=== PATIENT | female | born 1990 | race Hispanic/Latino ===

== ENCOUNTER 2021-04-27 07:07 | Emergency (ER) | payer OTHER ==
--- NOTE | 2021-04-27 08:33 | XRay Report ---
CHEST 2 VIEWS INDICATION / CLINICAL INFORMATION: Difficulty breathing, fever, sore throat, cough x5 days. COMPARISON: None available. FINDINGS: SUPPORT DEVICES: None. HEART / MEDIASTINUM: No significant abnormality. LUNGS / PLEURA: No significant pulmonary abnormality. No significant pleural effusion. No pneumothora x. ADDITIONAL FINDINGS: No significant additional findings. IMPRESSION: 1. No acute abnormality of the chest. Signer Name: Reese العلي MD Signed: 04/27/2021 8:29 AM Workstation Name: [email or web address]
--- NOTE | 2021-04-27 09:47 | Emergency Department Report ---
Blank Doc - Documentation Documentation: I did not participate in the care of this patient.
[2021-04-27] MEDS ORDERED: ALBUTEROL 2.5 MG/3 ML NEBU IH ONE (10:27)
[2021-04-27] MEDS ORDERED: predniSONE 20 MG TAB PO ONE (10:27)
[2021-04-27] MEDS ORDERED: IBUPROFEN 800 MG TAB PO ONE (10:27)
--- NOTE | 2021-04-27 10:27 | Emergency Department Report ---
Minor Respiratory - HPI Chief Complaint: Dyspnea/Respdistress Stated Complaint: congestion, runny nose, fever Time Seen by Provider: 04/27/21 10:26 Duration: 5 Days Pain Location: Chest Severity: mild Minor Respiratory: Yes Sore Throat, Yes Able to Tolerate Fluids, Yes Cough, No Rhinorrhea, No Ear Pain, No Sick Contacts, No Hemoptysis, No Chest Pain, No Shortness of Breath, No Fever Other History: 30 yo comes to ER with several day hx of uri symptoms- cough, sore throat, runny nose. No fever or chills. no cp. Did not get covid or flu immunzations. Ambulatory and non ill appearing on arrival to ER. covid and flu neg this week per pt ED Review of Systems ROS: Stated complaint: congestion, runny nose, fever Other details as noted in HPI Comment: All other systems reviewed and negative ED Past Medical Hx - Past Medical History Hx Hypertension: No Hx Congestive Heart Failure: No Hx Diabetes: No Hx Deep Vein Thrombosis: No Hx Renal Disease: No Hx Sickle Cell Disease: No Hx Seizures: No Hx Asthma: No Hx COPD: No Hx HIV: No - Social History Smoking Status: Current Every Day Smoker Substance Use Type: None - Medications Home Medications: Home Medications Medication Instructions Recorded Confirmed Last Taken Type Benzonatate [Tessalon Perles] 100 mg PO Q12H PRN #20 capsule 04/27/21 Unknown Rx Cetirizine HCl [ZyrTEC] 10 mg PO DAILY #30 capsule 04/27/21 Unknown Rx Fluticasone [Flonase] 1 spray NS QDAY #1 bottle 04/27/21 Unknown Rx predniSONE [Deltasone] 20 mg PO DAILY #5 tablet 04/27/21 Unknown Rx Minor Respiratory Exam - Exam General: Vital signs noted. No distress. Alert and acting appropriately. HEENT: Yes Pharyngeal Erythema, Yes Moist Mucous Membranes, Yes Rhinorrhea, No Pharyngeal Exudates, No Conjuctival Injection, No Frontal Tenderness, No Maxillary Tenderness Ear: Neither TM Bulge, Neither TM Erythema, Neither EAC Pain, Neither EAC Discharge Neck: Yes Supple, No Adenopathy Lungs: Yes Good Air Exchange, Yes Cough, No Wheezes, No Ronchi, No Stridor, No Labored Respirations, No Retractions, No Use of Accessory Muscles, No Other Abnormal Lung Sounds Heart: Yes Regular, No Murmur Abdomen: Yes Normal Bowel Sounds, No Tenderness, No Peritoneal Signs Skin: No Rash, No Edema Neurologic: Alert and oriented, no deficits. Musculoskeletal: Unremarkable. ED Course Vital Signs 04/27/21 07:09 Temperature 97.5 F L Pulse Rate 91 H Respiratory 20 Rate Blood Pressure 131/89 [Right] O2 Sat by Pulse 97 Oximetry ED Medical Decision Making - Radiology Data Radiology results: report reviewed, image reviewed NAP - Medical Decision Making Vital Signs 04/27/21 04/27/21 07:09 11:25 Temperature 97.5 F L Pulse Rate 91 H Pulse Rate [ 98 H Bilateral Throughout] Respiratory 20 Rate Respiratory 20 Rate [Bilateral Throughout] Blood Pressure 131/89 [Right] O2 Sat by Pulse 97 Oximetry xray nap coughing that is wheezy in nature duoneb and prednisone in ER neg covid and flu this week per pt ambulatory non ill non toxic taking po no sob with activity; does not desat dc home with dc plan of care including diet, activity, follow up and meds. pt verbalizes understanding of plan of care. - Differential Diagnosis ro covid/pna Critical care attestation.: If time is entered above; I have spent that time in minutes in the direct care of this critically ill patient, excluding procedure time. ED Disposition Clinical Impression: URI (upper respiratory infection) Qualifiers: URI type: unspecified viral URI Qualified Code(s): J06.9 - Acute upper respiratory infection, unspecified Disposition: 01 HOME / SELF CARE / HOMELESS Is pt being admited?: No Does the pt Need Aspirin: No Condition: Stable Instructions: Viral Respiratory Infection, [id number] Additional Instructions: MEDS ORDERED MOTRIN OR TYLENOL FOR PAIN OR FEVER STAY WELL HYDRATED WITH WATER FOLLOW UP WITH PCP NEXT WEEK FOR RECHECK REFERRAL BELOW Prescriptions: predniSONE [Deltasone] 20 mg PO DAILY #5 tablet Fluticasone [Flonase] 1 spray NS QDAY #1 bottle Benzonatate [Tessalon Perles] 100 mg PO Q12H PRN #20 capsule PRN Reason: Cough Cetirizine HCl [ZyrTEC] 10 mg PO DAILY #30 capsule Referrals: MARIJA ABDULLAHI MD [Staff Physician] - 3-5 Days Time of Disposition: 10:41
[2021-04-27 11:47] VITALS: BP 120/72
== END 2021-04-27 11:47 | disposition home or self-care (01) ==
LOC: ED 07:07
DX: J06.9 Acute upper respiratory infection, unspecified (principal); F17.200 Nicotine dependence, unspecified, uncomplicated; Z79.899 Other long term (current) drug therapy
CPT/HCPCS: 71046; 94640; 99283; J7512; 94644